=== PATIENT | male | born 1980 | race Caucasian/White ===

== ENCOUNTER 2018-04-23 08:47 | Emergency (ER) | payer MEDICARE ==
[~2018-04-23] VITALS: Ht 175.3 cm; Wt 90.7 kg
[~2018-04-23 08:47] MED LIST: KEPPRA1000 MG; [UNRECOGNIZED DRUG - OTHER]
[2018-04-23 09:35] LABS: BASOPHILS % 0.1 % (0.0-1.0); EOSINOPHILS % 0.1 % (0.0-6.0); HEMATOCRIT 41.9 % (38.2-49.6); HEMOGLOBIN 14.8 g/dL (14.0-18.0); LYMPHOCYTES # (AUTO) 0.4 (1.0-3.2); LYMPHOCYTES % 2.5 % (18.0-39.1); MEAN CORPUSCULAR HEMOGLOBIN 31.6 pg (28-32); MEAN CORPUSCULAR HGB CONC 35.3 g/dL (31-35); MEAN CORPUSCULAR VOLUME 89.3 fL (81-99); MONOCYTES # (AUTO) 0.8 (0.2-0.8); MONOCYTES % 5.7 % (4.4-11.3); NEUTROPHILS # (AUTO) 13.2 (2.1-6.9); NEUTROPHILS % 89.8 % (38.7-80.0); PLATELET COUNT 193 x10e3/uL (140-360); RED BLOOD COUNT 4.69 x10e6/uL (4.3-5.7); RED CELL DISTRIBUTION WIDTH 12.5 % (11.7-14.4)
[2018-04-23 09:45] LABS: ALANINE AMINOTRANSFERASE 43 IU/L (0-55); ALBUMIN 3.4 g/dL (3.5-5.0); ALBUMIN/GLOBULIN RATIO 0.7 (0.8-2.0); ALKALINE PHOSPHATASE 170 IU/L (40-150); ANION GAP 15.7 mmol/L (8-16); BLOOD UREA NITROGEN 8 mg/dL (7-26); BUN/CREATININE RATIO 10 (6-25); CALCIUM 10.2 mg/dL (8.4-10.2); CARBON DIOXIDE 25 mmol/L (22-29); CHLORIDE 94 mmol/L (98-107); CREATININE, SERUM 0.82 mg/dL (0.72-1.25); EST GLOMERULAR FILTRATION RATE > 60 ML/MIN (60-); GLUCOSE 158 mg/dL (74-118); POTASSIUM 3.7 mmol/L (3.5-5.1); SODIUM 131 mmol/L (136-145)
[2018-04-23 10:02] LABS: BAND NEUTROPHILS % (MANUAL) 6 %; LYMPHOCYTES % (MANUAL) 2 % (19-48); MONOCYTES % (MANUAL) 3 % (3.4-9.0); NEUTROPHILS % (MANUAL) 89 % (40-74); PLATELET ESTIMATE ADEQUATE; PLATELET MORPHOLOGY COMMENT NORMAL; RBC MORPHOLOGY COMMENT NORMAL
[2018-04-23 10:06] LABS: CREATINE KINASE MB 0.5 ng/mL (0-5.0)
--- NOTE | 2018-04-23 10:18 | Diagnostic Imaging Report ---
Exam: Head CT without contrast History: Vertigo, altered mental status, history of maple syrup urine disease. Comparison studies: Vertigo, altered mental status, medical therapy or an disease. Technique: Axial images were obtained from the skull base to the vertex. Coronal and sagittal images reconstructed from the axial data. Intravenous contrast: None Findings: Scalp and bones: No acute abnormalities. Old right frontal earl hole. Circumscribed, nonaggressive-appearing 9 mm sclerotic lesion in the right inferior frontal lobe along the right superior orbital rim is most likely an incidental fibro-osseous lesion. Brain sulci: Appropriate for age. Ventricles: Normal in size and configuration. No hydrocephalus. Extra-axial spaces: No masses, no fluid collection. Parenchyma: No mass, acute hemorrhage or acute cortical vascular insults. 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 Linear encephalomalacia and gliosis in the right frontal lobe which extends from the right middle frontal gyrus beneath the right frontal earl hole hole to the body of the right lateral ventricle, most likely related to previous shunt catheter placement (catheter has since been removed). Sellar/suprasellar region: Mostly CSF filled sella, a nonspecific finding which may be of no clinical significance if in the absence of symptoms to suggest idiopathic intracranial hypertension or abnormalities referrable to the hypothalamic-pituitary axis. Craniocervical junction: Patent foramen magnum. No Chiari one malformation. Incidental findings: Atherosclerotic calcifications within the carotid siphons. IMPRESSION: No acute intracranial abnormalities. Chronic findings: 1. Left inferomedial occipital vascular insult. 2. Changes related to previous shunt catheter (catheter has since been removed). 3. Empty sella, a nonspecific finding. Signed by: Dr. Eduardo Perla M.D. on 04/23/2018 10:15 AM
--- NOTE | 2018-04-23 10:27 | Diagnostic Imaging Report ---
EXAMINATION: CHEST 2 VIEWS INDICATION: \S\SEPSIS \[id number] \S\[id number] \S\Y COMPARISON: Chest radiograph 12/21/2015 FINDINGS: PA and lateral views TUBES and LINES: None. LUNGS: Lungs are poorly inflated. Patchy bilateral airspace opacities in the right lung base and left midlung. PLEURA: No pleural effusion or pneumothorax. HEART AND MEDIASTINUM: The cardiomediastinal silhouette is unremarkable. BONES AND SOFT TISSUES: No acute osseous lesion. Soft tissues are unremarkable. UPPER ABDOMEN: No free air under the diaphragm. IMPRESSION: Findings concerning for multifocal pneumonia. Recommend follow-up chest radiograph in 8-10 weeks to document resolution. Signed by: DR. Sebastien Berry MD on 04/23/2018 10:24 AM
[2018-04-23] MEDS ORDERED: AZITHROMYCIN 500MG/NS 250 ML 250 ML IV STA (10:36)
[2018-04-23] MEDS ORDERED: CEFTRIAXONE SOD 1 GM VIAL IV SCH (10:45)
[2018-04-23] MEDS ORDERED: DEXTROSE 10% 1,000 ML IV ONE (11:30)
[2018-04-23] MEDS ORDERED: SODIUM CHLORIDE 0.9% IV ONE (11:50)
[2018-04-23] MEDS ORDERED: DEXTROSE 50% IV ONE (11:50)
[2018-04-23 13:26] LABS: ABG HCO3 26 mmol/L (23-28); ABG PCO2 36 mmHg (41-51); ABG PH 7.47 (7.31-7.41); ABG PO2 60 mmHg (80-105)
== END 2018-04-23 14:02 | disposition short-term general hospital (02) ==
LOC: ER 08:47
DX: J15.9 Unspecified bacterial pneumonia (principal); H81.13 Benign paroxysmal vertigo, bilateral; R09.02 Hypoxemia; I10 Essential (primary) hypertension; R53.1 Weakness; R00.0 Tachycardia, unspecified; Z86.74 Personal history of sudden cardiac arrest; Z86.73 Personal history of transient ischemic attack (TIA), and cerebral infarction without residual deficits
CPT/HCPCS: 93005; 99284; J0456; J0696; J7030; J7799